=== PATIENT | male | born 1965 | race Caucasian/White ===

== ENCOUNTER 2020-07-27 01:35 | Outpatient (CLI) | payer BC, SELFPAY ==
[2020-07-28 01:06] LABS: SARS-CoV-2 RNA PCR Negative
== END 2020-07-27 01:36 | disposition home or self-care (01) ==
LOC: ANHCOVIDDT 01:36
PROVIDERS: PCP Physician Assistant; Visit Provider Internal Medicine Gastroenterology
DX: Z01.818 Encounter for other preprocedural examination (principal); Z20.828 Contact with and (suspected) exposure to other viral communicable diseases
CPT/HCPCS: 87635; C9803; U0003

== ENCOUNTER 2020-07-30 00:18 | Day surgery (SDC) | payer BC, SELFPAY ==
[2020-07-23 14:20] VITALS: BMI 32.5
--- NOTE | 2020-07-30 06:38 | WPDANESEPPF ---
Anes - Initial Pre Proc Eval Procedure: Operation Date: 07/30/20 08:30 Proposed Procedures p Screening Colonoscopy - Huy Duncan MD Date/Time: 07/30/20 06:38 Surgeon: Huy Duncan MD Pre Op Diagnosis: neoplasm screening, fm hx colon ca Patient Data Age: 54 Gender: M Height: 1.75 m Weight: 100 kg Allergies Allergy/AdvReac Type Severity Reaction Status Date / Time atropine Allergy Mild RED RASH Verified 07/30/20 07:27 diphenoxylate Allergy Mild RED RASH Verified 07/30/20 07:27 Quinolones Allergy Mild RED RASH Verified 07/30/20 07:27 Home Medications Medication Instructions Recorded Confirmed Type amlodipine 5 mg PO DAILY 07/23/20 07/30/20 History losartan 50 mg PO DAILY 07/23/20 07/30/20 History omeprazole 20 mg PO DAILY 07/23/20 07/30/20 History Patient hx anesthesia problems: none Family hx anesthesia problems: none [facility] Past Medical History Medical History (Updated 07/30/20 @ 06:38 by Reza Mann MD) Chronic GERD HTN (hypertension) Obesity Social History Social History Living arrangements: with family Anes - Eval Final PreProcedure Day of Procedure 07/30/20 06:38 Patient weight: obese Heart: regular rate and rhythm Lungs: clear to auscultation and normal air movement Airway: Mallampati scale class II Neurological: alert and oriented Last oral intake: >/= 8 hours ASA classification: II Emergent: no Anesthetic plan: proceed Anesthesia type and monitoring: general GIVS Informed Consent: The patient's anesthetic plan and its attendant risks and benefits were discussed with the patient/family/POA. Questions were solicited and answers provided to the satisfaction of the patient/family/POA.
[2020-07-30 07:11] VITALS: BP 152/99; PULSE 81; RESP 18; TEMP 36.7; O2SAT 81; BMI 33.1
[2020-07-30] MEDS: LACTATED RINGERS 1,000 ML 150 ML IV CONT (07:42)
--- NOTE | 2020-07-30 07:55 | P.CONGI_ITS ---
Assessment and Plan Assessment and plan (1) Family history of colon cancer in father: Code(s): Z80.0 - Family history of malignant neoplasm of digestive organs Status: Acute Assessment and Plan: Patient gives a family history of both colon cancer and polyps in both mother and father. Plan is for surveillance colonoscopy now and at 5 year intervals in the future. High-fiber diet is advised. GI Consult Note Consult date/time: 07/30/20 07:55 HPI: Tan Santos is a 54 year old male Seen in evaluation at the request of Dr. Mervin Nino. Patient gives a history of both colon polyps and cancer in both his mother and father. He presents today for screening examination. His c urrent weight appetite bowel movements are normal. He denies abdominal pain. He has had no bleeding. He does notice fullness at his anus. He denies any bleeding except with severe constipation. Denies any weight loss. His bowel habits recently have been normal. Review of Systems Review of Systems: All systems reviewed & are unremarkable except as noted in HPI and below PMFSH Past Medical History Medical History (Updated 07/30/20 @ 07:57 by Huy Duncan MD) Chronic GERD HTN (hypertension) Obesity Social History Social History Living arrangements: with family Meds Home Medications and Allergies Home Medications Medication Instructions Recorded Confirmed Type amlodipine 5 mg PO DAILY 07/23/20 07/30/20 History losartan 50 mg PO DAILY 07/23/20 07/30/20 History omeprazole 20 mg PO DAILY 07/23/20 07/30/20 History Allergies Allergy/AdvReac Type Severity Reaction Status Date / Time atropine Allergy Mild RED RASH Verified 07/30/20 07:27 diphenoxylate Allergy Mild RED RASH Verified 07/30/20 07:27 Quinolones Allergy Mild RED RASH Verified 07/30/20 07:27 Vital Signs Vital Signs - 24 hr 07/30/20 07:11 Temperature 98.1 F Pulse Rate 81 Respiratory Rate 18 Blood Pressure 152/99 H Pulse Oximetry 81 L Exam Narrative: Exam Narrative: Physical exam reveals patient to be alert. Vital signs stable. HEENT exam unremarkable. Lungs are clear to auscultation and percussion. Heart is without murmur or extra sounds. Abdominal exam bowel sounds are present soft nontender with no hepatosplenomegaly. Digital external rectal exam appears normal.
[2020-07-30 08:51] VITALS: BP 122/78; PULSE 77; RESP 16; O2SAT 94
[2020-07-30 09:01] VITALS: BP 115/75; PULSE 78; RESP 18; O2SAT 96
[2020-07-30 09:11] VITALS: BP 122/80; PULSE 73; RESP 20; O2SAT 98
== END 2020-07-30 09:30 | disposition home or self-care (01) ==
PROVIDERS: PCP Physician Assistant; Visit Provider Internal Medicine Gastroenterology
PROC: 0DJD8ZZ Inspection of Lower Intestinal Tract, Via Natural or Artificial Opening Endoscopic (ICD-10-PCS; CPT 45378; principal; 2020-07-30 08:30)
DX: Z12.11 Encounter for screening for malignant neoplasm of colon (principal); K64.4 Residual hemorrhoidal skin tags; K64.8 Other hemorrhoids; Z80.0 Family history of malignant neoplasm of digestive organs; Z83.71 Family history of colonic polyps; K21.9 Gastro-esophageal reflux disease without esophagitis; I10 Essential (primary) hypertension; E66.9 Obesity, unspecified; Z68.33 Body mass index [BMI] 33.0-33.9, adult
CPT/HCPCS: 45378; J2001; J2704; J7120